=== PATIENT | female | born 1945 | race Caucasian/White ===

== ENCOUNTER → 2017-04-05 | Outpatient (CLI) | payer MEDICARE ==
--- NOTE | 2017-04-05 12:25 | REPMRS ---
Patient History The patient states she had a clinical breast exam in 03/2015. Patient is postmenopausal. Family history of prostate cancer in brother at age 72 and pancreatic cancer in brother at age 75. Took unspecified hormones for 22 years. Digital Woman Screen Mammo: April 05, 2017 - Exam #: [id number] Bilateral CC and MLO view(s) were taken. Technologist: Rena Moon, Technologist Prior study comparison: March 22, 2016, digital woman screen mammo performed at [facility]. March 16, 2015, digital woman screen mammo performed at [facility]. March 17, 2014, digital woman screen mammo performed at [facility]. FINDINGS: The breast tissue is almost entirely fat. There has been no change in the appearance of the mammogram from the prior studies. There is no interval development of dominant mass, architectural distortion, or clustered microcalcification typical of malignancy. ASSESSMENT: BI-RADS/ACR category 1 mammogram. Negative. Recommendation Routine screening mammogram of both breasts in 1 year (for women over age 40). This mammogram was interpreted with the aid of an FDA-approved computer-aided dectection system. Electronically Signed By: Elian Caba MD 04/05/17 [id number]
== END ==
LOC: M WHC 09:19
PROVIDERS: ATTEND Nurse Practitioner Family
DX: Z01.419 Encounter for gynecological examination (general) (routine) without abnormal findings (principal); Z12.31 Encounter for screening mammogram for malignant neoplasm of breast; E65 Localized adiposity; Z78.0 Asymptomatic menopausal state; Z12.12 Encounter for screening for malignant neoplasm of rectum
CPT/HCPCS: 82270; G0101; G0202

== ENCOUNTER → 2017-05-02 | Outpatient (CLI) | payer MEDICARE ==
--- NOTE | 2017-05-02 11:47 | ECGEPIP ---
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
[2017-05-02 12:06] LABS: MEAN CORPUSCULAR HEMOGLOBIN 29.4 pg (27.0-33.0); MEAN CORPUSCULAR VOLUME 91.8 fl (80.0-96.0); RED CELL DISTRIBUTION WIDTH 13.2 % (11.5-14.5); WHITE BLOOD COUNT 8.8 10^3/uL (4.0-10.0)
--- NOTE | 2017-05-02 12:23 | REP ---
RIGHT KNEE, SIX VIEWS: HISTORY: Osteoarthritis. There is no acute fracture or dislocation. There is narrowing of the joint spaces with associated osteophyte formation. Chondrocalcinosis is present. An exostosis is present on the proximal medial tibia. Calcifications are present in the soft tissue adjacent to the joint spaces consistent with ligamentous or tendon calcification. The bony structure is osteopenic. IMPRESSION: Degenerative change as described above. Signed by Jerardo Byrd MD 05/02/2017 12:27 P
[2017-05-02 12:40] LABS: ALBUMIN 3.6 GM/DL (3.2-5.2); ALKALINE PHOSPHATASE 134 U/L (45-117); ALT/SGPT 52 U/L (12-78); ANION GAP 4 MEQ/L (8-16); AST/SGOT 38 U/L (15-37); BILIRUBIN,TOTAL 0.5 MG/DL (0.2-1.0); BLOOD UREA NITROGEN 14 MG/DL (7-18); CALCIUM LEVEL 9.6 MG/DL (8.8-10.2); CARBON DIOXIDE LEVEL 34 MEQ/L (21-32); CHLORIDE LEVEL 100 MEQ/L (98-107); CHOLESTEROL LEVEL 183 MG/DL (<200); CREATININE FOR GFR 0.65 MG/DL (0.55-1.02); GLOMERULAR FILTRATION RATE > 60.0 (>39); GLUCOSE, FASTING 107 MG/DL (83-110); POTASSIUM SERUM 4.4 MEQ/L (3.5-5.1); SODIUM LEVEL 138 MEQ/L (136-145); THYROXINE (T4) 10.2 UG/DL (4.5-12.0); TOTAL PROTEIN 7.2 GM/DL (6.4-8.2); TRIGLYCERIDES LEVEL 91 MG/DL (<150)
--- NOTE | 2017-05-02 12:40 | REP ---
CHEST X-RAY: Two views. HISTORY: Hypertension. COPD. COMPARISON CHEST X-RAY: April 20, 2016 and April 12, 2015. FINDINGS: There is a stable noncalcified 1.1 cm nodule in the right mid lung zone unchanged over the interval. Lung gil are otherwise clear. Pleural angles are sharp. Heart is not enlarged. Pulmonary vasculature is not increased. There are degenerative changes in the thoracic spine. The aorta is calcified. IMPRESSION: No active disease. Stable nodule in the right lung. Signed by Sudheer Caba MD 05/02/2017 05:09 P
== END ==
LOC: M LAB 10:54
PROVIDERS: ATTEND Family Medicine
DX: I10 Essential (primary) hypertension (principal); E11.9 Type 2 diabetes mellitus without complications; J44.9 Chronic obstructive pulmonary disease, unspecified; R91.8 Other nonspecific abnormal finding of lung field; M11.261 Other chondrocalcinosis, right knee; M25.761 Osteophyte, right knee; M85.80 Other specified disorders of bone density and structure, unspecified site

== ENCOUNTER → 2018-03-26 | Outpatient (CLI) | payer MEDICARE | LOC: M WUC 12:29 | DX: M79.672 Pain in left foot (principal) | CPT/HCPCS: 73630 ==

== ENCOUNTER → 2018-04-07 | Outpatient (CLI) | payer MEDICARE | LOC: M WHC 10:03 | DX: Z12.31 Encounter for screening mammogram for malignant neoplasm of breast (principal); Z92.29 Personal history of other drug therapy; Z80.42 Family history of malignant neoplasm of prostate; Z80.0 Family history of malignant neoplasm of digestive organs | CPT/HCPCS: 77067 ==

== ENCOUNTER → 2018-04-29 | Outpatient (CLI) | payer MEDICARE ==
[2018-04-29 09:15] LABS: HEMATOCRIT 45.2 % (36.0-47.0); HEMOGLOBIN 14.2 g/dl (12.0-15.5); MEAN CORPUSCULAR HEMOGLOBIN 29.1 pg (27.0-33.0); MEAN CORPUSCULAR HGB CONC 31.4 g/dl (32.0-36.5); MEAN CORPUSCULAR VOLUME 92.6 fl (80.0-96.0); PLATELET COUNT, AUTOMATED 354 10^3/uL (150-450); RED BLOOD COUNT 4.88 10^6/uL (4.00-5.40); RED CELL DISTRIBUTION WIDTH 13.4 % (11.5-14.5); WHITE BLOOD COUNT 9.1 10^3/uL (4.0-10.0)
[2018-04-29 09:48] LABS: ALBUMIN 3.5 GM/DL (3.2-5.2); ALBUMIN/GLOBULIN RATIO 1.03 (1.00-1.93); ALKALINE PHOSPHATASE 128 U/L (45-117); ALT/SGPT 42 U/L (12-78); ANION GAP 7 MEQ/L (8-16); AST/SGOT 28 U/L (7-37); BILIRUBIN,TOTAL 0.5 MG/DL (0.2-1.0); BLOOD UREA NITROGEN 13 MG/DL (7-18); CALCIUM LEVEL 9.4 MG/DL (8.8-10.2); CARBON DIOXIDE LEVEL 31 MEQ/L (21-32); CHLORIDE LEVEL 104 MEQ/L (98-107); CHOLESTEROL LEVEL 174 MG/DL (<200); CHOLESTEROL RISK RATIO 3.702 (<5); CREATININE FOR GFR 0.74 MG/DL (0.55-1.30); GLOMERULAR FILTRATION RATE > 60.0 (>39); GLUCOSE, FASTING 125 MG/DL (70-100); HDL CHOLESTEROL 47 MG/DL (>40); LDL CHOLESTEROL 110 MG/DL (<100); NON-HDL-C 127 MG/DL; POTASSIUM SERUM 4.7 MEQ/L (3.5-5.1); SODIUM LEVEL 142 MEQ/L (136-145); TOTAL PROTEIN 6.9 GM/DL (6.4-8.2); TRIGLYCERIDES LEVEL 87 MG/DL (<150)
[2018-04-29 10:23] LABS: ESTIMATED AVERAGE GLUCOSE 131 MG/DL (60-110); HEMOGLOBIN A1c 6.2 %
[2018-04-29 11:16] LABS: TOTAL 25(OH) VITAMIN D 43.5 NG/ML (30.0-100.0)
== END ==
LOC: M LAB 08:05
DX: R53.83 Other fatigue (principal); E11.9 Type 2 diabetes mellitus without complications; I10 Essential (primary) hypertension; Z79.899 Other long term (current) drug therapy
CPT/HCPCS: 71046

== ENCOUNTER → 2018-12-01 | Outpatient (CLI) | payer MEDICARE ==
[2018-12-01 08:58] LABS: HEMATOCRIT 46.2 % (36.0-47.0); HEMOGLOBIN 14.5 g/dl (12.0-15.5); MEAN CORPUSCULAR HEMOGLOBIN 29.5 pg (27.0-33.0); MEAN CORPUSCULAR HGB CONC 31.4 g/dl (32.0-36.5); MEAN CORPUSCULAR VOLUME 94.1 fl (80.0-96.0); PLATELET COUNT, AUTOMATED 309 10^3/uL (150-450); RED BLOOD COUNT 4.91 10^6/uL (4.00-5.40); WHITE BLOOD COUNT 10.1 10^3/uL (4.0-10.0)
[2018-12-01 09:31] LABS: ALBUMIN 3.7 GM/DL (3.2-5.2); ALT/SGPT 52 U/L (12-78); BILIRUBIN,TOTAL 0.4 MG/DL (0.2-1.0); BLOOD UREA NITROGEN 21 MG/DL (7-18); CALCIUM LEVEL 9.3 MG/DL (8.8-10.2); CARBON DIOXIDE LEVEL 32 MEQ/L (21-32); CHLORIDE LEVEL 104 MEQ/L (98-107); CHOLESTEROL LEVEL 175 MG/DL (<200); CHOLESTEROL RISK RATIO 2.966 (<5); CREATININE FOR GFR 0.76 MG/DL (0.55-1.30); GLOMERULAR FILTRATION RATE > 60.0 (>39); GLUCOSE, FASTING 120 MG/DL (70-100); HDL CHOLESTEROL 59 MG/DL (>40); LDL CHOLESTEROL 100 MG/DL (<100); NON-HDL-C 116 MG/DL; POTASSIUM SERUM 4.4 MEQ/L (3.5-5.1); SODIUM LEVEL 141 MEQ/L (136-145); TOTAL PROTEIN 6.9 GM/DL (6.4-8.2); TRIGLYCERIDES LEVEL 78 MG/DL (<150)
[2018-12-01 10:33] LABS: HEMOGLOBIN A1c 6.4 %
== END ==
LOC: M LAB 08:28
PROVIDERS: ATTEND Family Medicine
DX: I10 Essential (primary) hypertension (principal); R53.83 Other fatigue; E11.9 Type 2 diabetes mellitus without complications; Z79.899 Other long term (current) drug therapy

== ENCOUNTER → 2019-03-10 | Outpatient (CLI) | payer MEDICARE ==
--- NOTE | 2019-03-10 11:26 | REP ---
RIGHT SHOULDER, THREE VIEWS: Three views of the right shoulder are performed. There is no acute fracture or dislocation. There is moderate spurring at the acromioclavicular joint with mild narrowing. There is also mild narrowing and spurring at the glenohumeral joint. IMPRESSION: Degenerative changes without other significant finding. Electronically Signed by Rafat Varela MD 03/11/2019 09:33 A
--- NOTE | 2019-03-10 11:28 | REP ---
CHEST, TWO VIEWS: Two views of the chest are performed and compared to prior studies, most recently 04/29/2018. Once again there is a stable 1.1 cm nodular opacity in the right lower lobe likely a benign granuloma. This has remained stable since 2015 exams. No new parenchymal opacity seen bilaterally. Heart is not enlarged. There is mild calcification of the thoracic aorta. Mediastinal silhouette is unchanged. There are mild degenerative changes of the spine. IMPRESSION: Stable chronic findings without evidence of acute pulmonary disease. Electronically Signed by Rafat Varela MD 03/11/2019 09:34 A
--- NOTE | 2019-03-10 17:56 | ECGEPIP ---
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
== END ==
LOC: M EKG 08:54
PROVIDERS: ATTEND Family Medicine
DX: M25.511 Pain in right shoulder (principal)

== ENCOUNTER → 2019-04-07 | Outpatient (CLI) | payer MEDICARE ==
--- NOTE | 2019-04-07 12:12 | REPMRS ---
Patient History The patient states she had a clinical breast exam in 03/2019. Family history of prostate cancer at age 72 in brother, pancreatic cancer at age 75 in brother. Took unspecified hormones for 22 years. 3D TOMOSYNTHESIS WAS PERFORMED. The [facility] lifetime risk for breast cancer is 2.5%. Digital Woman Screen Mammo: April 07, 2019 - Exam #: [id number] Bilateral CC and MLO view(s) were taken. Technologist: Rena Moon, Technologist Prior study comparison: April 07, 2018, bilateral digital woman screen mammo performed at [facility]. April 05, 2017, digital woman screen mammo performed at [facility]. FINDINGS: There are scattered fibroglandular densities. There has been no change in the appearance of the mammogram from the prior studies. There is a mild amount of residual fibroglandular tissue which is fairly symmetric. There is no interval development of dominant mass, architectural distortion, or clustered microcalcification suggestive of malignancy. Assessment: BI-RADS/ACR category 1 mammogram. Negative Mammogram. Recommendation Routine screening mammogram in 1 year (for women over age 40). This mammogram was interpreted with the aid of an FDA-approved computer-aided dectection system. Electronically Signed By: Rafat Varela MD 04/07/19 1431
== END ==
LOC: M WHC 09:44
PROVIDERS: ATTEND Nurse Practitioner Family
DX: Z12.31 Encounter for screening mammogram for malignant neoplasm of breast (principal); Z80.42 Family history of malignant neoplasm of prostate; Z80.0 Family history of malignant neoplasm of digestive organs; Z92.29 Personal history of other drug therapy
CPT/HCPCS: 77063; 77067; G0463

== ENCOUNTER → 2020-05-04 | Outpatient (CLI) | payer MEDICARE ==
--- NOTE | 2020-05-04 12:25 | REPMRS ---
Patient History The patient states she had a clinical breast exam in 04/2020. Family history of prostate cancer at age 72 in brother, pancreatic cancer at age 75 in brother. Took unspecified hormones for 22 years. Digital Woman Screen Mammo: May 04, 2020 - Exam #: [id number] Bilateral CC and MLO view(s) were taken. Technologist: Rena Moon, Technologist Prior study comparison: April 07, 2019, bilateral digital woman screen mammo performed at [facility]. April 07, 2018, bilateral digital woman screen mammo performed at [facility]. April 05, 2017, digital woman screen mammo performed at [facility]. FINDINGS: The breast tissue is almost entirely fat. The Volpara volumetric breast density category is: A. There has been no change in the appearance of the mammogram from the prior studies. There is no interval development of dominant mass, architectural distortion, or grouped microcalcification typical of malignancy. 3-D tomosynthesis shows no additional findings. Assessment: BI-RADS/ACR category 1 mammogram. Negative Mammogram. Recommendation Routine screening mammogram of both breasts in 1 year (for women over age 40). This patient's Lifetime Breast Cancer RIsk is estimated at 2.3 %. This mammogram was interpreted with the aid of an FDA-approved computer-aided dectection system. Electronically Signed By: Elian Caba MD 05/04/20 1304
== END ==
LOC: M WHC 09:53
PROVIDERS: ATTEND Nurse Practitioner Family
DX: Z12.31 Encounter for screening mammogram for malignant neoplasm of breast (principal); Z80.42 Family history of malignant neoplasm of prostate; Z92.29 Personal history of other drug therapy
CPT/HCPCS: 77063; 77067; G0463

== ENCOUNTER → 2020-06-08 | Outpatient (CLI) | payer MEDICARE ==
[2020-06-08 09:28] LABS: HEMATOCRIT 46.3 % (36.0-47.0); HEMOGLOBIN 14.3 g/dl (12.0-15.5); MEAN CORPUSCULAR HEMOGLOBIN 29.3 pg (27.0-33.0); MEAN CORPUSCULAR HGB CONC 30.9 g/dl (32.0-36.5); MEAN CORPUSCULAR VOLUME 94.9 fl (80.0-96.0); PLATELET COUNT, AUTOMATED 368 10^3/uL (150-450); RED BLOOD COUNT 4.88 10^6/uL (4.00-5.40); WHITE BLOOD COUNT 9.3 10^3/uL (4.0-10.0)
[2020-06-08 09:59] LABS: ALBUMIN 3.5 GM/DL (3.2-5.2); ALT/SGPT 42 U/L (12-78); BILIRUBIN,TOTAL 0.5 MG/DL (0.2-1.0); BLOOD UREA NITROGEN 15 MG/DL (7-18); CALCIUM LEVEL 9.3 MG/DL (8.8-10.2); CARBON DIOXIDE LEVEL 31 MEQ/L (21-32); CHLORIDE LEVEL 100 MEQ/L (98-107); CHOLESTEROL LEVEL 175 MG/DL (<200); CHOLESTEROL RISK RATIO 3.301 (<5); CREATININE FOR GFR 0.73 MG/DL (0.55-1.30); GLOMERULAR FILTRATION RATE > 60.0 (>39); GLUCOSE, FASTING 114 MG/DL (70-100); HDL CHOLESTEROL 53 MG/DL (>40); LDL CHOLESTEROL 107 MG/DL (<100); NON-HDL-C 122 MG/DL; POTASSIUM SERUM 4.1 MEQ/L (3.5-5.1); SODIUM LEVEL 138 MEQ/L (136-145); TOTAL 25(OH) VITAMIN D 47.6 NG/ML (30.0-100.0); TRIGLYCERIDES LEVEL 76 MG/DL (<150)
[2020-06-08 10:04] LABS: HEMOGLOBIN A1c 6.2 %
--- NOTE | 2020-06-08 16:43 | REP ---
INDICATION: HTN/FATIGUE/LABS COMPARISON: 03/10/2019. TECHNIQUE: PA/Lateral FINDINGS: Lungs: Clear, no infiltrate. There is a stable 1 cm nodular opacity again seen projecting over the right lung base. There is stable mild elevation of the right hemidiaphragm. Heart: Normal in size. Mediastinum: Calcification of the thoracic aorta is again noted. Mediastinal silhouette is otherwise unremarkable. Pleural angles: Unremarkable.. Bones and soft tissues: There are degenerative changes of the spine without compression deformity. IMPRESSION: No acute pulmonary disease. <Electronically signed by Rafat Varela > 06/08/20 [id number]
--- NOTE | 2020-06-11 13:36 | ECGEPIP ---
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
== END ==
LOC: M LAB 08:28
PROVIDERS: ATTEND Family Medicine
DX: R53.83 Other fatigue (principal); I10 Essential (primary) hypertension

== ENCOUNTER → 2020-12-21 | Outpatient (CLI) | payer MEDICARE ==
--- NOTE | 2020-12-21 10:59 | REP ---
INDICATION: COPD COMPARISON: 06/08/2020 TECHNIQUE: PA and lateral. FINDINGS: The mediastinum and cardiac silhouette are normal. The lung gil are clear and without acute consolidation, effusion, or pneumothorax. Stable nodule in the right midlung zone unchanged compared through 2017. The skeletal structures are intact and normal. IMPRESSION: No acute cardiopulmonary process. <Electronically signed by Jr Romero > 12/21/20 [id number]
== END ==
LOC: M LAB 10:29 → M RAD 10:29
PROVIDERS: ATTEND Family Medicine
DX: J44.9 Chronic obstructive pulmonary disease, unspecified (principal)

== ENCOUNTER 2021-03-26 11:11 | Emergency (ER) | payer MEDICARE ==
[~2021-03-26] VITALS: Ht 154.9 cm; Wt 124.7 kg
[2021-03-26] MEDS ORDERED: LOSA50TA88 (11:35)
[2021-03-26] MEDS ORDERED: VITATAB74 PO (11:35)
[2021-03-26] MEDS ORDERED: HYDR-3490 (11:35)
[2021-03-26] MEDS ORDERED: FLUT1BLS2 (11:35)
[2021-03-26 12:00] LABS: BASO # 0.1 10^3/uL (0.0-0.2); BASO % 0.8 % (0.0-1.0); EOS # 0.3 10^3/uL (0.0-0.5); EOS % 2.5 % (0.0-3.0); HEMOGLOBIN 14.2 g/dl (12.0-15.5); LYMPH # 1.4 10^3/uL (1.5-5.0); MEAN CORPUSCULAR HEMOGLOBIN 29.5 pg (27.0-33.0); MEAN CORPUSCULAR HGB CONC 31.6 g/dl (32.0-36.5); MEAN CORPUSCULAR VOLUME 93.6 fl (80.0-96.0); MONO # 0.6 10^3/uL (0.0-0.8); MONO % 5.7 % (2.0-8.0); NEUTROPHILS % 77.5 % (36.0-66.0); PLATELET COUNT, AUTOMATED 371 10^3/uL (150-450); RED BLOOD COUNT 4.81 10^6/uL (4.00-5.40); WHITE BLOOD COUNT 10.4 10^3/uL (4.0-10.0)
--- NOTE | 2021-03-26 12:29 | REP ---
INDICATION: CHEST PAIN. COMPARISON: PA and lateral chest, 12/21/2020. TECHNIQUE: Upright portable AP chest image was obtained. FINDINGS: There is bilateral perihilar peribronchial thickening consistent with viral pneumonia or acute bronchitis. There is no lobar consolidation or pleural effusion. There is stable benign calcified granulomas in both lungs. The heart borders and mediastinum are normal. There is calcific vascular disease of the thoracic aorta. IMPRESSION: 1. Findings consistent with viral pneumonia or acute bronchitis. 2. Other findings as noted not significantly changed. <Electronically signed by Jae Devine > 03/26/21 [id number]
[2021-03-26 13:49] LABS: ALBUMIN 2.9 GM/DL (3.2-5.2); ALT/SGPT 43 U/L (12-78); BILIRUBIN,DIRECT < 0.1 MG/DL (0.0-0.2); BILIRUBIN,TOTAL 0.6 MG/DL (0.2-1.0); BLOOD UREA NITROGEN 10 MG/DL (7-18); CALCIUM LEVEL 8.9 MG/DL (8.8-10.2); CARBON DIOXIDE LEVEL 28 MEQ/L (21-32); CHLORIDE LEVEL 104 MEQ/L (98-107); CREATININE FOR GFR 0.69 MG/DL (0.55-1.30); GLOMERULAR FILTRATION RATE > 60.0 (>39); GLUCOSE, FASTING 113 MG/DL (70-100); LIPASE 60 U/L (73-393); NT-PRO BNP 136 PG/ML (<125); POTASSIUM SERUM 6.4 MEQ/L (3.5-5.1); SODIUM LEVEL 136 MEQ/L (136-145); TOTAL PROTEIN 6.8 GM/DL (6.4-8.2)
[2021-03-26] MEDS ORDERED: ISOVUE-370 76% 100ML VIAL As Ordered ONE (13:59)
[2021-03-26 14:13] LABS: CK-MB VALUE MASS 1.5 NG/ML (<3.6); CPK CREATINE PHOSPHOKINASE 169 U/L (26-192); MB/CK RELATIVE INDEX 0.89 (< OR =4); TROPONIN I 0.11 NG/ML (< 0.10)
[2021-03-26] MEDS ORDERED: GI COCKTAIL 50ML BTL(HYOSCYAMINE/MAALOX/LIDOCAINE VISCOUS)(1:3:1) PO ONE (14:25)
--- NOTE | 2021-03-26 14:54 | REP ---
INDICATION: chest pain, history of hiatal hernia. COMPARISON: None. TECHNIQUE: Imaging protocol: CT angiography of the chest with IV contrast. Contiguous 3 mm thick axial projection images were obtained through the chest. 2D sagittal and coronal reconstructions were performed. Radiation optimization: All CT scans at this facility use at least one of these dose optimization techniques: automated exposure control; mA and/or kV adjustment per patient size (includes targeted exams where dose is matched to clinical indication); or iterative reconstruction. CONTRAST: 75 cc Isovue 370 IV. FINDINGS: Lower neck: The thyroid gland is normal. There is no supraclavicular lymphadenopathy. Mediastinum: There are a few, not pathologically enlarged, mediastinal lymph nodes. Heart/thoracic aorta/pulmonary arterial tree: The heart is borderline enlarged. There is calcific vascular disease of the thoracic aorta and coronary arteries. There are no pulmonary emboli. Upper abdomen: Hepatomegaly. There is a hyperenhancing area in the posterior segment of the right hepatic lobe of uncertain clinical significance. There is thickening of the limbs of the left adrenal gland. Thoracic esophagus: There is a small hiatal hernia. Chest wall and axilla: The breasts and soft tissues of the chest wall appear normal. There is no axillary lymphadenopathy. There is moderate multilevel degenerative disc disease of the thoracic spine. There is mild levoscoliosis of the thoracolumbar spine. Lung parenchyma: There is a benign calcified granuloma in the middle lobe of the right lung. There are no noncalcified pulmonary nodules. There are no pleural effusions. IMPRESSION: 1. No evidence of pulmonary emboli. 2. Benign calcified granuloma in the middle lobe of the right lung. This nodule was noncalcified on previous exams. 3. Hyperenhancing area in the posterior segment of the right hepatic lobe. This area was not demonstrated on previous CT chest exams. Follow-up MR imaging of the liver with and without IV contrast. 4. Hepatomegaly. No significant change. 5. Small hiatal hernia. 6. Multilevel thoracic degenerative disc disease. 7. Thickening of the limbs of the left adrenal gland may indicate adenoma. No significant change. <Electronically signed by Jae Devine > 03/26/21 [id number]
[2021-03-26 15:20] LABS: BLOOD UREA NITROGEN 8 MG/DL (7-18); CALCIUM LEVEL 8.9 MG/DL (8.8-10.2); CARBON DIOXIDE LEVEL 30 MEQ/L (21-32); CHLORIDE LEVEL 103 MEQ/L (98-107); CREATININE FOR GFR 0.54 MG/DL (0.55-1.30); GLOMERULAR FILTRATION RATE > 60.0 (>39); GLUCOSE, FASTING 106 MG/DL (70-100); POTASSIUM SERUM 3.9 MEQ/L (3.5-5.1); SODIUM LEVEL 139 MEQ/L (136-145)
[2021-03-26 15:26] VITALS: BP 167/87
--- NOTE | 2021-03-27 07:10 | ED PDOC ---
Post-Departure Follow-Up radiology repor tfaxed to Yolanda Longoria MD Mar 27, 2021 07:10
--- NOTE | 2021-03-27 16:45 | ECGEPIP ---
[facility] Test Date: 2021-03-26 Pat Name: LIZZIE CARLTON Department: Room: - Gender: Female [employer]ognos Architect: JOSÉ : 1945 Requested By: Yolanda Florez Order Number: [id number] Reading MD: Yolanda Florez Measurements Intervals [place] Rate: 93 P: 58 RI: 178 QRS: 10 QRSD: 76 T: 55 QT: 372 QTc: 462 Interpretive Statements Normal sinus rhythm similar 06/08/20 Electronically Signed on 03-27-2021 16:45:00 EDT by Yolanda Florez
== END 2021-03-26 15:49 | disposition left against medical advice (07) ==
LOC: M ED 11:11
DX: I21.4 Non-ST elevation (NSTEMI) myocardial infarction (principal); I10 Essential (primary) hypertension; J44.9 Chronic obstructive pulmonary disease, unspecified; J45.909 Unspecified asthma, uncomplicated; Z88.8 Allergy status to other drugs, medicaments and biological substances; Z79.899 Other long term (current) drug therapy
CPT/HCPCS: 36415; 71045; 71275; 80048; 80076; 82550; 82553; 83690; 83880; 84443; 84484; 85025; 93005; 93041; 99285; Q9967

== ENCOUNTER 2021-03-28 02:25 | Emergency (ER) | payer MEDICARE ==
[~2021-03-28] VITALS: Ht 154.9 cm; Wt 124.7 kg
[~2021-03-28 02:25] MED LIST: FLUT1BLS2; HYDR-3490; LOSA50TA88; VITATAB74 PO
[2021-03-28] MEDS ORDERED: METAL LOCK LOOP XX ONE (02:49)
[2021-03-28 03:10] LABS: BASO # 0.1 10^3/uL (0.0-0.2); BASO % 0.7 % (0.0-1.0); EOS # 0.2 10^3/uL (0.0-0.5); EOS % 2.3 % (0.0-3.0); HEMATOCRIT 43.7 % (36.0-47.0); HEMOGLOBIN 13.9 g/dl (12.0-15.5); LYMPH # 1.6 10^3/uL (1.5-5.0); LYMPH % 17.1 % (24.0-44.0); MEAN CORPUSCULAR HGB CONC 31.8 g/dl (32.0-36.5); MEAN CORPUSCULAR VOLUME 94.2 fl (80.0-96.0); MONO # 0.7 10^3/uL (0.0-0.8); MONO % 6.8 % (2.0-8.0); NEUTROPHILS # 6.9 10^3/uL (1.5-8.5); NEUTROPHILS % 72.6 % (36.0-66.0); PLATELET COUNT, AUTOMATED 356 10^3/uL (150-450); RED BLOOD COUNT 4.64 10^6/uL (4.00-5.40); WHITE BLOOD COUNT 9.5 10^3/uL (4.0-10.0)
[2021-03-28 03:28] LABS: INR 1.07; PROTHROMBIN TIME 14.3 SECONDS (12.7-14.5)
[2021-03-28 03:29] LABS: PARTIAL THROMBOPLASTIN TIME 29.2 SECONDS (25.9-37.0)
[2021-03-28] MEDS ORDERED: ASPIRIN 81 MG CHEW TABLET PO ONE (03:35)
[2021-03-28 03:51] LABS: ALBUMIN 3.1 GM/DL (3.2-5.2); ALT/SGPT 42 U/L (12-78); BILIRUBIN,DIRECT < 0.1 MG/DL (0.0-0.2); BILIRUBIN,TOTAL 0.5 MG/DL (0.2-1.0); BLOOD UREA NITROGEN 15 MG/DL (7-18); CALCIUM LEVEL 9.2 MG/DL (8.8-10.2); CARBON DIOXIDE LEVEL 29 MEQ/L (21-32); CHLORIDE LEVEL 104 MEQ/L (98-107); CK-MB VALUE MASS 2.1 NG/ML (<3.6); CPK CREATINE PHOSPHOKINASE 206 U/L (26-192); CREATININE FOR GFR 0.64 MG/DL (0.55-1.30); GLOMERULAR FILTRATION RATE > 60.0 (>39); GLUCOSE, FASTING 109 MG/DL (70-100); MB/CK RELATIVE INDEX 1.02 (< OR =4); NT-PRO BNP 115 PG/ML (<125); POTASSIUM SERUM 5.3 MEQ/L (3.5-5.1); SODIUM LEVEL 138 MEQ/L (136-145); TOTAL PROTEIN 6.8 GM/DL (6.4-8.2); TROPONIN I < 0.02 NG/ML (< 0.10)
[2021-03-28 03:55] LABS: RSV AMPLIFICATION NEGATIVE (NEGATIVE)
--- NOTE | 2021-03-28 03:55 | REPVR ---
PROCEDURE INFORMATION: Exam: XR Chest Exam date and time: 03/28/2021 3:22 AM Age: 75 years old Clinical indication: Pain; Other: Not specified; Additional info: Chest pain TECHNIQUE: Imaging protocol: XR of the chest. Views: 1 view. COMPARISON: CR PORTABLE CHEST X-RAY 03/26/2021 11:24 AM FINDINGS: Lungs: There are no interval infiltrates. Pleural spaces: Unremarkable. No pleural effusion. No pneumothorax. Heart/Mediastinum: The heart and mediastinum are unchanged. Bones/joints: Unremarkable. Soft tissues: There are generous overlying soft tissues. IMPRESSION: Stable negative chest since 03/26/2021. Electronically signed by: Kev Ahn On 03/28/2021 03:54:59 AM
[2021-03-28 05:01] VITALS: BP 98/55
--- NOTE | 2021-03-28 17:54 | ECGEPIP ---
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
== END 2021-03-28 05:11 | disposition short-term general hospital (02) ==
LOC: M ED 02:25
DX: I20.0 Unstable angina (principal); I10 Essential (primary) hypertension; J44.9 Chronic obstructive pulmonary disease, unspecified; M19.90 Unspecified osteoarthritis, unspecified site; Z79.899 Other long term (current) drug therapy; Z88.8 Allergy status to other drugs, medicaments and biological substances; Z87.891 Personal history of nicotine dependence; R06.02 Shortness of breath

== ENCOUNTER → 2022-01-15 | Outpatient (CLI) | payer MEDICARE ==
[~2022-01-15] MED LIST changes: +LOSA50TA28; -LOSA50TA88
[2022-01-15 11:56] LABS: HEMATOCRIT 38.1 % (36.0-47.0); HEMOGLOBIN 11.2 g/dl (12.0-15.5); MEAN CORPUSCULAR HEMOGLOBIN 24.9 pg (27.0-33.0); MEAN CORPUSCULAR HGB CONC 29.4 g/dl (32.0-36.5); MEAN CORPUSCULAR VOLUME 84.7 fl (80.0-96.0); PLATELET COUNT, AUTOMATED 402 10^3/uL (150-450); WHITE BLOOD COUNT 9.1 10^3/uL (4.0-10.0)
[2022-01-15 12:39] LABS: ALBUMIN 3.3 GM/DL (3.2-5.2); ALT/SGPT 23 U/L (12-78); BILIRUBIN,TOTAL 0.5 MG/DL (0.2-1.0); BLOOD UREA NITROGEN 16 MG/DL (7-18); CALCIUM LEVEL 10.1 MG/DL (8.8-10.2); CARBON DIOXIDE LEVEL 31 MEQ/L (21-32); CHLORIDE LEVEL 107 MEQ/L (98-107); CHOLESTEROL LEVEL 125 MG/DL (<200); CHOLESTEROL RISK RATIO 1.923 (<5); CREATININE FOR GFR 0.71 MG/DL (0.55-1.30); GLOMERULAR FILTRATION RATE > 60.0 (>39); GLUCOSE, FASTING 110 MG/DL (70-100); HDL CHOLESTEROL 65 MG/DL (>40); LDL CHOLESTEROL 49 MG/DL (<100); NON-HDL-C 60 MG/DL; POTASSIUM SERUM 5.5 MEQ/L (3.5-5.1); SODIUM LEVEL 141 MEQ/L (136-145); TOTAL PROTEIN 6.7 GM/DL (6.4-8.2); TRIGLYCERIDES LEVEL 53 MG/DL (<150)
[2022-01-15 13:02] LABS: TOTAL 25(OH) VITAMIN D 57.3 NG/ML (30.0-100.0)
[2022-01-15 15:07] LABS: HEMOGLOBIN A1c 6.2 %
== END ==
LOC: M LAB 11:14
PROVIDERS: ATTEND Family Medicine
DX: I10 Essential (primary) hypertension (principal)

== ENCOUNTER 2022-03-09 12:05 | Emergency (ER) | payer MEDICARE ==
[~2022-03-09] VITALS: Ht 154.9 cm; Wt 122.8 kg
[2022-03-09] MEDS ORDERED: OXYMETAZOLINE 0.05% NASAL SPRAY (AFRIN) ONE (15:05)
[2022-03-09 15:35] VITALS: BP 126/80
== END 2022-03-09 15:38 | disposition home or self-care (01) ==
LOC: M ED 12:05
DX: R04.0 Epistaxis (principal); I11.0 Hypertensive heart disease with heart failure; I50.9 Heart failure, unspecified; Z88.6 Allergy status to analgesic agent

== ENCOUNTER → 2022-07-30 | Outpatient (CLI) | payer MEDICARE ==
[2022-07-30 11:51] LABS: HEMOGLOBIN 11.2 g/dl (12.0-15.5); MEAN CORPUSCULAR HEMOGLOBIN 26.3 pg (27.0-33.0); MEAN CORPUSCULAR HGB CONC 29.5 g/dl (32.0-36.5); MEAN CORPUSCULAR VOLUME 89.2 fl (80.0-96.0); PLATELET COUNT, AUTOMATED 303 10^3/uL (150-450); RED BLOOD COUNT 4.26 10^6/uL (4.00-5.40); WHITE BLOOD COUNT 9.7 10^3/uL (4.0-10.0)
[2022-07-30 12:11] LABS: HEMOGLOBIN A1c 6.2 % (4.0-6.0)
[2022-07-30 12:15] LABS: ALBUMIN 3.2 G/DL (3.2-5.2); ALKALINE PHOSPHATASE 173 U/L (46-116); ALT/SGPT 20 U/L (7.0-40); AST/SGOT 27 U/L (<34); BILIRUBIN,TOTAL 0.5 MG/DL (0.3-1.2); BLOOD UREA NITROGEN 15 MG/DL (9-23); CALCIUM LEVEL 9.7 MG/DL (8.3-10.6); CARBON DIOXIDE LEVEL 29 MMOL/L (20-31); CHLORIDE LEVEL 105 MMOL/L (98-107); CHOLESTEROL LEVEL 111 MG/DL (<200); CHOLESTEROL RISK RATIO 2.04 (<5); CREATININE FOR GFR 0.66 MG/DL (0.55-1.30); GLOMERULAR FILTRATION RATE > 60.0 (>39); GLUCOSE, FASTING 106 MG/DL (74-106); HDL CHOLESTEROL 54.4 MG/DL (>40); IRON (FE) 40 UG/DL (50-170); LDL CHOLESTEROL 47.6 MG/DL (<100); NON-HDL-C 57 MG/DL; PERCENT SATURATION 9.6 % (13.2-45.0); POTASSIUM SERUM 4.7 MMOL/L (3.5-5.1); SODIUM LEVEL 141 MMOL/L (136-145); TOTAL IRON BINDING CAPACITY 417 UG/DL (250-425); TOTAL PROTEIN 6.8 G/DL (5.7-8.2); TRIGLYCERIDES LEVEL 45 MG/DL (<150)
[2022-07-30 12:22] LABS: THYROID STIMULATING HORMONE 1.961 uIU/ML (0.55-4.78); TOTAL 25(OH) VITAMIN D 58.2 NG/ML (20.0-100.0)
== END ==
LOC: M LAB 10:53
PROVIDERS: ATTEND Family Medicine
DX: D64.9 Anemia, unspecified (principal); E78.00 Pure hypercholesterolemia, unspecified

== ENCOUNTER → 2022-10-29 | Outpatient (CLI) | payer MEDICARE | LOC: M PLAIMG 09:02 | PROVIDERS: ATTEND Family Medicine | DX: I10 Essential (primary) hypertension (principal) ==

== ENCOUNTER → 2022-11-06 | Outpatient (CLI) | payer MEDICARE | LOC: M EKG 08:45 | PROVIDERS: ATTEND Family Medicine | DX: I10 Essential (primary) hypertension (principal) ==

== ENCOUNTER → 2023-06-17 | Outpatient (CLI) | payer MEDICARE | LOC: M RAD 09:29 | PROVIDERS: ATTEND Family Medicine | DX: M19.90 Unspecified osteoarthritis, unspecified site (principal) ==

== ENCOUNTER → 2024-02-20 | Outpatient (CLI) | payer MEDICARE ==
[2024-02-20 10:25] LABS: HEMATOCRIT 39.5 % (36.0-47.0); HEMOGLOBIN 11.9 g/dl (12.0-15.5); MEAN CORPUSCULAR HGB CONC 30.1 g/dl (32.0-36.5); MEAN CORPUSCULAR VOLUME 89.6 fl (80.0-96.0); PLATELET COUNT, AUTOMATED 349 10^3/uL (150-450); RED BLOOD COUNT 4.41 10^6/uL (4.00-5.40); WHITE BLOOD COUNT 7.4 10^3/uL (4.0-10.0)
[2024-02-20 10:34] LABS: HEMOGLOBIN A1c 6.4 % (4.0-6.0)
[2024-02-20 10:44] LABS: ALBUMIN 3.2 G/DL (3.2-5.2); ALKALINE PHOSPHATASE 166 U/L (46-116); ALT/SGPT 26 U/L (7.0-40); AST/SGOT 32 U/L (<34); BILIRUBIN,TOTAL 0.7 MG/DL (0.3-1.2); BLOOD UREA NITROGEN 18 MG/DL (9-23); CALCIUM LEVEL 9.3 MG/DL (8.3-10.6); CARBON DIOXIDE LEVEL 31 MMOL/L (20-31); CHLORIDE LEVEL 103 MMOL/L (98-107); CHOLESTEROL LEVEL 117 MG/DL (<200); CHOLESTEROL RISK RATIO 1.92 (<5); CREATININE FOR GFR 0.67 MG/DL (0.55-1.30); GLOMERULAR FILTRATION RATE > 60.0 (>39); GLUCOSE, FASTING 118 MG/DL (74-106); HDL CHOLESTEROL 60.8 MG/DL (>40); NON-HDL-C 56.2 MG/DL; POTASSIUM SERUM 4.6 MMOL/L (3.5-5.1); SODIUM LEVEL 139 MMOL/L (136-145); TOTAL PROTEIN 6.3 G/DL (5.7-8.2); TRIGLYCERIDES LEVEL 66 MG/DL (<150)
[2024-02-20 10:45] LABS: THYROID STIMULATING HORMONE 2.989 uIU/ML (0.55-4.78); TOTAL 25(OH) VITAMIN D 57.4 NG/ML (20.0-100.0)
== END ==
LOC: M RAD 08:46
PROVIDERS: ATTEND Family Medicine
DX: I10 Essential (primary) hypertension (principal); R53.83 Other fatigue; E03.9 Hypothyroidism, unspecified; R94.31 Abnormal electrocardiogram [ECG] [EKG]; Z79.899 Other long term (current) drug therapy

== ENCOUNTER → 2024-06-29 | Outpatient (CLI) | payer MEDICARE | LOC: M RAD 12:36 | PROVIDERS: ATTEND Family Medicine | DX: J18.9 Pneumonia, unspecified organism (principal) ==

== ENCOUNTER → 2024-07-17 | Outpatient (CLI) | payer MEDICARE | LOC: M RAD 11:23 | PROVIDERS: ATTEND Family Medicine | DX: J18.9 Pneumonia, unspecified organism (principal) ==